=== PATIENT | male | born 1980 | race Caucasian/White ===

== ENCOUNTER 2020-09-18 11:11 | Inpatient (IN) | payer BC, MEDICAID, SELFPAY ==
[~2020-09-18] VITALS: Ht 180.3 cm; Wt 148.6 kg
--- NOTE | 2020-09-18 11:53 | NUR ---
maintaining sats 94% on 4lnc. rul coarse breath sounds. tachypneic 24-30/min. more tachypneic on exertion. piv est, labs drawn, 1 set blood cultures. plan banner tx. call spence. ST on monitor 100-110s. denies chest pain/pressure/non prod cough. as
[2020-09-18 12:10] LABS: BASOPHILS % (AUTO) 1 % (0-1); EOSINOPHILS % (AUTO) 0 % (1-7); LYMPHOCYTES % (AUTO) 31 % (22-44); MEAN CORPUSCULAR HEMOGLOBIN 29.9 pg (27.5-34.5); MEAN PLATELET VOLUME 8.1 fL (7.4-10.4); MONOCYTES % (AUTO) 9 % (2-9); NEUTROPHILS % (AUTO) 60 % (42-75); PLATELET COUNT 205 x10^3/uL (130-400); RED BLOOD COUNT 5.74 x10^6/uL (4.38-5.82); RED CELL DISTRIBUTION WIDTH 13.1 % (9.4-14.8)
[2020-09-18 12:12] LABS: MD NO
[2020-09-18 12:19] LABS: ALANINE AMINOTRANSFERASE 51 U/L (12-78); ALBUMIN 3.2 g/dL (3.4-5.0); ANION GAP 10 mmol/L (5-15); CALCIUM 8.5 mg/dL (8.5-10.1); CHLORIDE 103 mmol/L (98-107); CREATININE 1.06 mg/dL (0.7-1.3)
[2020-09-18 12:22] LABS: ALKALINE PHOSPHATASE 53 U/L (45-117); BILIRUBIN,TOTAL 0.8 mg/dL (0.2-1.0); TOTAL PROTEIN 7.8 g/dL (6.4-8.2)
--- NOTE | 2020-09-18 13:03 | NUR ---
pt tbadm. akin aware of cxr/vs.as
--- NOTE | 2020-09-18 13:43 | NUR ---
TASK RN: PT RESTING IN [facility]. NAD. VSS. NO NEEDS AT THIS TIME
[2020-09-18 14:58] LABS: C-REACTIVE PROTEIN, QUANT 11.9 mg/dL (0.02-0.49)
--- NOTE | 2020-09-18 15:29 | NUR ---
AWAITING ADMIT, VSS, NAD.
[2020-09-18] MEDS ORDERED: DOCUSATE 100 MG CAPSULE PO PRN (15:30)
[2020-09-18] MEDS ORDERED: ONDANSETRON 2MG/ML, 2ML IVPush PRN (15:30)
[2020-09-18] MEDS ORDERED: ACETAMINOPHEN 325 MG TABLET PO PRN (15:30)
[2020-09-18] MEDS ORDERED: GUAIFENESIN/DM 200-20MG, 10ML UDC PO PRN (15:30)
[2020-09-18] MEDS: AZITHROMYCIN 500 MG in SODIUM CHLORIDE 0.9% 250 ML IV SCH (15:30)
[2020-09-18] MEDS ORDERED: ENALAPRILAT 1.25 MG/ML, 2ML IVPush PRN (15:30)
[2020-09-18] MEDS ORDERED: METOCLOPRAMIDE 5 MG/ML, 2ML IVPush PRN (15:30)
[2020-09-18] MEDS ORDERED: TRAZODONE 50MG TABLET PO PRN (15:30)
[2020-09-18] MEDS ORDERED: ONDANSETRON ODT 4 MG PO PRN (15:30)
--- NOTE | 2020-09-18 15:34 | NUR ---
HOSP BED REQ.
--- NOTE | 2020-09-18 17:02 | NUR ---
Edgar osborne in [facility] - 09/18/20 at 1702 by NORBERT TASK RN: EARNEST LUNA,
--- NOTE | 2020-09-18 17:03 | NUR ---
TASK RN: , EARNEST,
[2020-09-18] MEDS ORDERED: ASCORBIC ACID 500 MG TABLET ONE (17:30)
[2020-09-18] MEDS ORDERED: ENOXAPARIN 40 MG/0.4 ML ONE (17:30)
[2020-09-18] MEDS ORDERED: DEXAMETHASONE 4 MG/ML, 1ML ONE (17:30)
[2020-09-18] MEDS ORDERED: CEFTRIAXONE PMX 1GM/50ML 50 ML ONE (17:31)
[2020-09-18] MEDS ORDERED: BENZONATATE 100 MG CAPSULE ONE ×3 (17:31→22:22)
[2020-09-18] MEDS: CEFTRIAXONE PMX 1GM/50ML 50 ML IV SCH (17:51)
[2020-09-18] MEDS: DEXAMETHASONE 4 MG/ML, 1ML IVPush SCH (17:52)
[2020-09-18] MEDS: BENZONATATE 100 MG CAPSULE PO SCH ×2 (17:52→22:26)
[2020-09-18] MEDS: ASCORBIC ACID 500 MG TABLET PO SCH (17:52)
--- NOTE | 2020-09-18 17:59 | NUR ---
MOVEDTO HOSP BED, DINNER, MEDS . CALL [facility].
[2020-09-18] MEDS: ENOXAPARIN 30 MG/0.3 ML SQ SCH (18:31)
--- NOTE | 2020-09-18 18:53 | NUR ---
REPORT TO YULIA MONTEIRO.
[2020-09-18] MEDS ORDERED: FAMOTIDINE 20 MG TABLET ONE (22:22)
[2020-09-18] MEDS: FAMOTIDINE 20 MG TABLET PO SCH (22:26)
[2020-09-18 23:00] VITALS: BP 132/70
[2020-09-19 01:03] VITALS: BP 141/88
[2020-09-19] MEDS: ENOXAPARIN 30 MG/0.3 ML SQ SCH ×2 (06:26→18:06)
[2020-09-19 06:32] LABS: BASOPHILS % (AUTO) 0 % (0-1); EOSINOPHILS % (AUTO) 0 % (1-7); LYMPHOCYTES % (AUTO) 25 % (22-44); MEAN CORPUSCULAR HEMOGLOBIN 30.1 pg (27.5-34.5); MEAN CORPUSCULAR HGB CONC 35.4 g/dL (33.2-36.2); MEAN PLATELET VOLUME 7.7 fL (7.4-10.4); MONOCYTES % (AUTO) 9 % (2-9); NEUTROPHILS % (AUTO) 66 % (42-75); PLATELET COUNT 238 x10^3/uL (130-400); RED BLOOD COUNT 5.45 x10^6/uL (4.38-5.82); RED CELL DISTRIBUTION WIDTH 12.9 % (9.4-14.8)
[2020-09-19 06:33] LABS: MD NO
[2020-09-19 06:37] LABS: ALANINE AMINOTRANSFERASE 58 U/L (12-78); ALBUMIN 2.9 g/dL (3.4-5.0); ANION GAP 5 mmol/L (5-15); CALCIUM 8.7 mg/dL (8.5-10.1); CHLORIDE 105 mmol/L (98-107); CREATININE 0.83 mg/dL (0.7-1.3)
[2020-09-19 06:44] LABS: ALKALINE PHOSPHATASE 50 U/L (45-117); BILIRUBIN,TOTAL 0.5 mg/dL (0.2-1.0); C-REACTIVE PROTEIN, QUANT 7.47 mg/dL (0.02-0.49); TOTAL PROTEIN 7.3 g/dL (6.4-8.2)
[2020-09-19 07:29] VITALS: BP 138/86
[2020-09-19] MEDS: FAMOTIDINE 20 MG TABLET PO SCH ×2 (09:49→19:54)
[2020-09-19] MEDS: ZINC SULFATE 220 MG CAPSULE PO SCH (09:49)
[2020-09-19] MEDS: ASCORBIC ACID 500 MG TABLET PO SCH ×2 (09:49→16:49)
[2020-09-19] MEDS: CHOLECALCIFEROL 1,000 UNIT TABLET PO SCH (09:49)
[2020-09-19] MEDS: BENZONATATE 100 MG CAPSULE PO SCH ×3 (09:49→19:54)
[2020-09-19] MEDS: DEXAMETHASONE 4 MG/ML, 1ML IVPush SCH (09:50)
[2020-09-19 13:05] VITALS: BP 148/93
[2020-09-19] MEDS: CEFTRIAXONE PMX 1GM/50ML 50 ML IV SCH (15:39)
[2020-09-19] MEDS: AZITHROMYCIN 500 MG in SODIUM CHLORIDE 0.9% 250 ML IV SCH (16:49)
[2020-09-19 19:22] VITALS: BP 142/90
[2020-09-20 00:32] VITALS: BP 143/81
[2020-09-20] MEDS: ENOXAPARIN 30 MG/0.3 ML SQ SCH ×2 (06:23→16:25)
[2020-09-20 06:53] VITALS: BP 142/87
[2020-09-20] MEDS: ASCORBIC ACID 500 MG TABLET PO SCH ×2 (08:54→16:25)
[2020-09-20] MEDS: CHOLECALCIFEROL 1,000 UNIT TABLET PO SCH (08:54)
[2020-09-20] MEDS: DEXAMETHASONE 4 MG/ML, 1ML IVPush SCH (08:55)
[2020-09-20] MEDS: FAMOTIDINE 20 MG TABLET PO SCH ×2 (08:55→20:57)
[2020-09-20] MEDS: BENZONATATE 100 MG CAPSULE PO SCH ×3 (08:55→20:57)
[2020-09-20] MEDS: ZINC SULFATE 220 MG CAPSULE PO SCH (08:55)
[2020-09-20 12:27] VITALS: BP 135/88
[2020-09-20] MEDS: CEFTRIAXONE PMX 1GM/50ML 50 ML IV SCH (15:35)
[2020-09-20] MEDS: AZITHROMYCIN 500 MG in SODIUM CHLORIDE 0.9% 250 ML IV SCH (16:24)
[2020-09-20 18:47] VITALS: BP 154/87
[2020-09-21 01:53] VITALS: BP 159/93
[2020-09-21] MEDS: ENOXAPARIN 30 MG/0.3 ML SQ SCH (05:27)
[2020-09-21 05:47] LABS: BASOPHILS % (AUTO) 0 % (0-1); EOSINOPHILS % (AUTO) 0 % (1-7); LYMPHOCYTES % (AUTO) 23 % (22-44); MEAN CORPUSCULAR HEMOGLOBIN 29.9 pg (27.5-34.5); MEAN CORPUSCULAR HGB CONC 34.7 g/dL (33.2-36.2); MEAN PLATELET VOLUME 7.3 fL (7.4-10.4); MONOCYTES % (AUTO) 10 % (2-9); NEUTROPHILS % (AUTO) 67 % (42-75); PLATELET COUNT 301 x10^3/uL (130-400); RED BLOOD COUNT 5.27 x10^6/uL (4.38-5.82); RED CELL DISTRIBUTION WIDTH 13.1 % (9.4-14.8)
[2020-09-21 05:54] LABS: ALANINE AMINOTRANSFERASE 95 U/L (12-78); ALBUMIN 2.9 g/dL (3.4-5.0); ANION GAP 4 mmol/L (5-15); CALCIUM 8.5 mg/dL (8.5-10.1); CHLORIDE 107 mmol/L (98-107); CREATININE 0.78 mg/dL (0.7-1.3)
[2020-09-21 05:56] LABS: ALKALINE PHOSPHATASE 47 U/L (45-117); BILIRUBIN,TOTAL 0.4 mg/dL (0.2-1.0); TOTAL PROTEIN 6.6 g/dL (6.4-8.2)
[2020-09-21 06:38] VITALS: BP 142/95
[2020-09-21 07:00] LABS: MD SCAN
[2020-09-21] MEDS: CHOLECALCIFEROL 1,000 UNIT TABLET PO SCH (09:01)
[2020-09-21] MEDS: ZINC SULFATE 220 MG CAPSULE PO SCH (09:01)
[2020-09-21] MEDS: ASCORBIC ACID 500 MG TABLET PO SCH (09:01)
[2020-09-21] MEDS: FAMOTIDINE 20 MG TABLET PO SCH (09:02)
[2020-09-21] MEDS: DEXAMETHASONE 4 MG/ML, 1ML IVPush SCH (09:02)
[2020-09-21] MEDS: BENZONATATE 100 MG CAPSULE PO SCH (09:02)
[2020-09-21] MEDS ORDERED: ASCO500T9 PO (09:45)
[2020-09-21] MEDS ORDERED: CHOL10003 PO (09:45)
[2020-09-21] MEDS ORDERED: DEXA6TAB6 PO (09:47)
[2020-09-21] MEDS ORDERED: CEFD300C37 PO (09:49)
[2020-09-21] MEDS ORDERED: AZIT250T89 PO (09:49)
== END 2020-09-21 11:15 | disposition home or self-care (01) | DRG 177 ==
LOC: ED 12:20 → EDIP 14:13 → SUATTDRO 14:15 → 4WST 22:44
PROVIDERS: ADMIT Hospitalist; ATTEND Hospitalist
DX: U07.1 COVID-19 (principal); J12.89 Other viral pneumonia; J96.01 Acute respiratory failure with hypoxia; Z68.42 Body mass index [BMI] 45.0-49.9, adult; E66.9 Obesity, unspecified
CPT/HCPCS: 36415; 71045; 80053; 82728; 83605; 83615; 84145; 85025; 85379; 86140; 87040; 99285; G0378; J0456; J0696; J1100; J1650; J7050